=== PATIENT | female | born 1930 | race Two or more races ===

== ENCOUNTER 2017-09-26 12:32 | Emergency (ER) | payer OTHER ==
[~2017-09-26] VITALS: Ht 157.5 cm; Wt 44.0 kg
[~2017-09-26 12:32] MED LIST: ATIVAN1 M1; PAXIL20 MG; SEROQUEL50 MG; SULFAMETHOXAZOL1 TA3 PO
[2017-09-26] MEDS ORDERED: ASA81 MG (12:58)
== END 2017-09-26 22:14 | disposition home or self-care (01) ==
LOC: ER 12:32
DX: K21.9 Gastro-esophageal reflux disease without esophagitis (principal); B34.9 Viral infection, unspecified; R10.11 Right upper quadrant pain

== ENCOUNTER 2018-08-31 10:14 | Emergency (ER) | payer OTHER ==
[~2018-08-31] VITALS: Ht 157.5 cm; Wt 45.4 kg
[~2018-08-31 10:14] MED LIST changes: +ASA81 MG
== END 2018-08-31 22:31 | disposition home or self-care (01) ==
LOC: ER 10:14
DX: K56.41 Fecal impaction (principal); R10.84 Generalized abdominal pain